=== PATIENT | female | born 1955 | race Caucasian/White ===

== ENCOUNTER 2022-10-28 21:57 | Inpatient (IN) | payer OTHER ==
[~2022-10-28] VITALS: Ht 172.7 cm; Wt 93.0 kg
[2022-10-28 22:08] VITALS: BP_SYST 135
--- NOTE | 2022-10-28 22:12 | NUR ---
Patient triaged and placed in BED 2. VSS and patient appears in no acute distress at this time. Accompanied by SELF and MD notified of need for MSE.
[2022-10-28] MEDS ORDERED: ALBUTEROL SULFATE 0.083% 2.5 MG/3 ML VIAL.NEB INH ONE (22:15)
[2022-10-28] MEDS ORDERED: methylPREDNISolone SOD SUCC/PF 62.5 MG/ML VIAL IVP ONE (22:15)
[2022-10-28] MEDS ORDERED: IPRATROPIUM BROM 0.5 MG/2.5 ML VIAL.NEB (ATROVENT) INH ONE (22:15)
[2022-10-28] MEDS ORDERED: cefTRIAXone 1 GM in D5W 50 ML IV ONE (22:15)
[2022-10-28 22:39] LABS: BASOPHILS % (AUTO) 0.4 % (0.0-2.0); EOSINOPHILS % (AUTO) 0.1 % (0.0-4.0); HEMATOCRIT 28.2 % (36-48); HEMOGLOBIN 8.2 g/dL (12.0-16.0); LYMPHOCYTES # (AUTO) 1.2 K/uL (1.0-5.5); LYMPHOCYTES % (AUTO) 11.5 % (20.5-51.5); MEAN CORPUSCULAR HEMOGLOBIN 20 pg (27-31); MEAN CORPUSCULAR HGB CONC 29 % (32-36); MEAN CORPUSCULAR VOLUME 71 fL (79.0-98.0); MONOCYTES # (AUTO) 0.9 K/uL (0.0-1.0); MONOCYTES % (AUTO) 8.3 % (1.7-9.3); NEUTROPHILS # (AUTO) 8.3 K/uL (1.8-7.7); NEUTROPHILS % (AUTO) 79.7 % (40.0-70.0); PLATELET COUNT (AUTO) 278 K/uL (130-430); RED BLOOD CELL COUNT(AUTO) 4.01 MIL/uL (4.2-6.2); RED CELL DISTRIBUTION WIDTH 21.9 % (9.0-15.0); WHITE BLOOD COUNT (AUTO) 10.4 K/uL (4.8-10.8)
[2022-10-28] MEDS ORDERED: cefTRIAXone 1 GM VIAL ONE (22:39)
[2022-10-28] MEDS ORDERED: ACETAMINOPHEN 325 MG TABLET PO ONE (22:45)
--- NOTE | 2022-10-28 22:47 | NUR ---
COVID AND FLU SAMPLE COLLECTED AND SENT TO LAB
[2022-10-28 23:30] LABS: CALCIUM 9.3 mg/dL (8.4-11.0); CHLORIDE 96 mmol/L (98-107); GLUCOSE 161 mg/dL (70-99); UREA NITROGEN, BLOOD 23 mg/dL (8-21)
[2022-10-28 23:31] LABS: ALANINE AMINOTRANSFERASE 13 U/L (12-78); ASPARTATE AMINOTRANSFERASE 13 U/L (10-37); CREATININE 1.54 mg/dL (0.55-1.30); GFR AFRICAN AMERICAN 43 mL/min (>90); TOTAL BILIRUBIN 1.1 mg/dL (0.0-1.0)
[2022-10-28 23:40] LABS: ANION GAP 5 (5-15)
--- NOTE | 2022-10-28 23:40 | NUR ---
ems gave breathing tx in route. pt placed on the monitor. pt c/o headache. md notified
--- NOTE | 2022-10-28 23:40 | NUR ---
patient came in for sob at home. es
[2022-10-29] MEDS ORDERED: POTASSIUM CHLORIDE 20 MEQ/PKT PACKET PO ONE
[2022-10-29] MEDS ORDERED: AZITHROMYCIN 500 MG in NS 250 ML IV ONE (00:15)
[2022-10-29] MEDS ORDERED: AZITHROMYCIN 500 MG/VIAL (ZITHROMAX) IV ONE ×2 (00:19→23:09)
[2022-10-29] MEDS ORDERED: DOCUSATE SODIUM 100 MG CAPSULE PO PRN (02:15)
[2022-10-29] MEDS ORDERED: ONDANSETRON HCL 4 MG/2 ML VIAL IVP PRN (02:15)
[2022-10-29] MEDS ORDERED: POTASSIUM CHLORIDE 20 MEQ TAB.PRT.SR PO PRN (02:15)
[2022-10-29] MEDS ORDERED: MAGNESIUM SULFATE 50 ML IV PRN (02:15)
[2022-10-29] MEDS ORDERED: MORPHINE 2 MG/ML INJ. SYRINGE IVP PRN ×2 (02:15)
[2022-10-29] MEDS ORDERED: MUPIROCIN 2% TOPICAL OINTMENT 22 GM NS PRN (02:15)
[2022-10-29] MEDS ORDERED: ACETAMINOPHEN 325 MG TABLET PO PRN (02:15)
[2022-10-29] MEDS ORDERED: DEXTROSE 50% JECT 50 ML DISP.SYRIN IVP PRN (02:15)
[2022-10-29] MEDS ORDERED: MAGNESIUM SULFATE 50 ML IV ONE (02:30)
[2022-10-29] MEDS ORDERED: ONDANSETRON 4 MG ODT TAB PO ONE (02:30)
--- NOTE | 2022-10-29 02:55 | NUR ---
[id number]
[2022-10-29 05:27] VITALS: BP_SYST 135
--- NOTE | 2022-10-29 05:45 | NUR ---
pt resting in bed. per pt gave list of meds to nuclear licensing engineer. unable to remmeber meds
--- NOTE | 2022-10-29 06:03 | NUR ---
Admit bed requested Patient will be admitted to care of . Admitted to TELE unit. Diagnosis COPD Inpatient (Yes or No) YES Observation (Yes or No) NO Orientation concerns or request close to nursing station (Yes or No) NO Covid Status NEGATIVE On vent or bipap NO Isolation requirements NO Needs a sitter NO From Home (Yes or if No enter name of facility) YES Requires Dialysis (Yes or No) NO Med Rec Completed (Yes of No) UNABLE TO OBTAIN BY PRIMARY NURSE DUE TO PT CANNOT REMEMBER ALL HER HOME MEDICATION.PT STATES SHE GAVE HER LIST TO THE INSURANCE ANALYST.
[2022-10-29] MEDS: METHYLPREDNISOLONE SOD SUCC 40 MG/ML VIAL IVP SCH ×3 (06:31→21:23)
[2022-10-29] MEDS: ALBUTEROL SULFATE 0.083% 2.5 MG/3 ML VIAL.NEB INH SCH ×4 (06:48→22:45)
--- NOTE | 2022-10-29 07:37 | NUR ---
Received report from outgoing nurse SANTY Gibbs. Pt awake and alert, no s/s of discomfort noted. 20g left wrist patent, no s/s of infiltration noted. Vitals taken.
--- NOTE | 2022-10-29 07:59 | NUR ---
Patient states brought home med list and gave to Ambulance EMT's. Med list did not make it into the building. Patient is unable to provide verbal list, states does not know them by heart. Patient will attempt to have someone from home send in a list or photos.
--- NOTE | 2022-10-29 08:00 | NUR ---
Patient given cardiac diet breakfast.
[2022-10-29 08:01] LABS: HEMATOCRIT 29.7 % (36-48); HEMOGLOBIN 8.5 g/dL (12.0-16.0); LYMPHOCYTES # (AUTO) 0.5 K/uL (1.0-5.5); LYMPHOCYTES % (AUTO) 5.4 % (20.5-51.5); MEAN CORPUSCULAR HEMOGLOBIN 20 pg (27-31); MEAN CORPUSCULAR HGB CONC 29 % (32-36); MEAN CORPUSCULAR VOLUME 71 fL (79.0-98.0); MONOCYTES # (AUTO) 0.1 K/uL (0.0-1.0); MONOCYTES % (AUTO) 0.8 % (1.7-9.3); NEUTROPHILS # (AUTO) 8.6 K/uL (1.8-7.7); NEUTROPHILS % (AUTO) 93.8 % (40.0-70.0); PLATELET COUNT (AUTO) 318 K/uL (130-430); RED BLOOD CELL COUNT(AUTO) 4.22 MIL/uL (4.2-6.2); WHITE BLOOD COUNT (AUTO) 9.2 K/uL (4.8-10.8)
[2022-10-29 08:26] LABS: RED CELL DISTRIBUTION WIDTH 22.3 % (9.0-15.0)
[2022-10-29 08:35] LABS: CALCIUM 9.4 mg/dL (8.4-11.0); CREATININE 1.36 mg/dL (0.55-1.30)
[2022-10-29 08:44] LABS: TOTAL IRON BIND. CAPACITY 500 ug/dL (250-450)
[2022-10-29 08:47] LABS: ALBUMIN 3.2 g/dL (3.4-4.8); THYROID STIMULATING HORMONE 0.5 uIu/mL (0.34-4.82); TOTAL BILIRUBIN 0.9 mg/dL (0.0-1.0)
--- NOTE | 2022-10-29 08:51 | NUR ---
DR. AMBRIZ AT THE BEDSIDE
[2022-10-29] MEDS ORDERED: BUDE6HFA INH (09:19)
[2022-10-29] MEDS ORDERED: ALBU2.5V7 INH (09:19)
[2022-10-29] MEDS ORDERED: CHOL125C7 (09:19)
[2022-10-29] MEDS ORDERED: MELO-89 PO (09:19)
[2022-10-29] MEDS ORDERED: APIX5TAB4 PO (09:19)
[2022-10-29] MEDS ORDERED: PRO20 PO (09:19)
[2022-10-29] MEDS ORDERED: ACET160S2 PO (09:19)
[2022-10-29] MEDS ORDERED: SPIRIVA INH (09:19)
[2022-10-29] MEDS ORDERED: ROSU40TA PO (09:19)
[2022-10-29] MEDS ORDERED: TORS20TA23 PO (09:19)
[2022-10-29] MEDS ORDERED: AMLO5TAB4 PO (09:19)
[2022-10-29] MEDS ORDERED: ASPI-1155 PO (09:19)
[2022-10-29] MEDS ORDERED: CARV12.548 PO (09:19)
[2022-10-29] MEDS ORDERED: MAGN400T10 PO (09:19)
--- NOTE | 2022-10-29 12:00 | NUR ---
Vibration Technician re: homelessness Met with patient at bedside to discuss her housing issues regarding homelessness. Per patient, she is not homeless. She recently relocated from [place] after she and her sone experienced health issues. The patient is a 67-year-old female who is alert and oriented. I completed an initial assessment with the patient at bedside. During my assessment, the patient states she resides in a single story home with her daughter and her family. The patient was using a walker, wheelchair, and home O2 set to 3L. The patient does have a [employer] of [employer], in which her daughter, Griffin Portillo ([phone]) holds the POA. Per patient, her PCP is Dr. Bhakta in [place]. Per patient, the discharge plan is to return back home with her family. The patient states there are no anticipated discharge needs in place. The patient is in agreement to the discharge plan. At time of discharge, the patient states her daughter will likely pick her up.
--- NOTE | 2022-10-29 16:08 | NUR ---
Patient will be admitted to care of DR BARRERA. Admitted to TELE unit. Will go to room 119A. Belongings list completed. Complete and up to date summary report printed. SBAR report to be given at bedside with opportunity for questions.
--- NOTE | 2022-10-29 16:10 | NUR ---
Pt admitted tele under care of DR Underwood AOX4 VSS Pt verbally responsive and able to make needs known Will continue to monitor
[2022-10-29 18:13] VITALS: BP_SYST 136
--- NOTE | 2022-10-29 18:28 | NUR ---
Patient SOB after ambulating to the bathoom RT called for breathing treatment Bedside commode provided to patient AOX4 at this time VSS Will continue to monitor
[2022-10-29 20:00] VITALS: BP_SYST 136
[2022-10-29] MEDS: APIXABAN 2.5 MG TABLET PO SCH (21:21)
[2022-10-29] MEDS: ATORVASTATIN 20 MG TABLET PO SCH (21:21)
[2022-10-29] MEDS: INSULIN LISPRO SLIDING SCALE 100 UNITS/ML, 3 ML VIAL (humaLOG) SUBCUT PRN (21:23)
[2022-10-29] MEDS: FERROUS SULFATE 325 MG TABLET.DR PO SCH (21:24)
[2022-10-29] MEDS: CARVEDILOL 12.5 MG TABLET (COREG) PO SCH (21:25)
--- NOTE | 2022-10-29 23:04 | NUR ---
CONSULTATION CALLED FOR DR. KRISHNAN FOR CONSULT OF COPD ORDER BY DR. BARRERA SPOKE WITH ANGLE
[2022-10-29] MEDS: ZOLPIDEM TARTRATE 5 MG TABLET PO PRN (23:08)
[2022-10-29] MEDS ORDERED: cefTRIAXone 1 GM IVPB PREMIX 50 ML IV ONE (23:09)
[2022-10-29] MEDS: cefTRIAXone 1 GM IVPB PREMIX 50 ML IV SCH (23:17)
--- NOTE | 2022-10-29 23:20 | NUR ---
CONSULTATION CHAMBERLAIN FOR DR. AMBRIZ FOR CONSULT CHF ORDER BY DR. BARRERA SPOKE WITH DOMINIC
[2022-10-29] MEDS: AZITHROMYCIN 500 MG in NS 250 ML IV SCH (23:55)
[2022-10-30] VITALS: BP_SYST 122
--- NOTE | 2022-10-30 03:00 | NUR ---
ROUNDS PATIENT IN BED, RESTING. NO SIGNS OF DISCOMFORT. ALL NEEDS MET. WILL MONITOR.
[2022-10-30] MEDS: METHYLPREDNISOLONE SOD SUCC 40 MG/ML VIAL IVP SCH ×3 (06:11→22:06)
--- NOTE | 2022-10-30 06:44 | NUR ---
CLOSING NOTE PATIENT IN BED, NO S/S OF ACUTE DISTRESS. BREATHING EVEN AND UNLABORED. HOB RAISED, NASAL CANULA ATTACHED PROPERLY, ON 4L OF OXYGEN. IV SITE PATENT,NO SIGNS OF INFILTRATION OR INFECTION NOTED. SKIN WARM AND DRY TO TOUCH. NO S/S OF HYPOGLYCEMIA NOTED. ALL NEEDS MET THROUGHOUT SHIFT. FALL, SAFETY PRECAUTIONS MAINTAINED THROUGHOUT SHIFT. WILL CONTINUE TO MONITOR UNTIL PATIENT CARE IS ENDORSED TO ONCOMING DAYSHIFT NURSE.
--- NOTE | 2022-10-30 07:48 | NUR ---
RN OPENING NOTE REPORT WAS ENDORSED BY NIGHT NURSE. PATIENT APPEARS TO BE RESTING WITH BOTH EYES CLOSED NO SIGNS OF ANY DISTRESS. NO OTHER NEEDS AT THIS TIME.
[2022-10-30 08:00] VITALS: BP_SYST 119
[2022-10-30] MEDS: FLUoxetine HCL 20 MG CAPSULE (PROzac) PO SCH (08:38)
[2022-10-30] MEDS: ASPIRIN 81 MG TAB.CHEW PO SCH (08:38)
[2022-10-30] MEDS: FERROUS SULFATE 325 MG TABLET.DR PO SCH ×2 (08:38→22:05)
[2022-10-30] MEDS: CARVEDILOL 12.5 MG TABLET (COREG) PO SCH ×2 (08:39→22:06)
[2022-10-30] MEDS: amLODIPine BESYLATE 5 MG TABLET PO SCH (08:39)
[2022-10-30] MEDS: APIXABAN 2.5 MG TABLET PO SCH ×2 (08:40→22:09)
--- NOTE | 2022-10-30 08:44 | NUR ---
medication/ breathing tx patients scheduled medication given per order. Patient is having some SOB RT is giving patient breathing treatment. Dr. Zavala is at bedside. patient educated match up person light for assistance. call light is with her. no other needs at this time.
[2022-10-30 08:56] LABS: BASOPHILS % (AUTO) 0.2 % (0.0-2.0); CALCIUM 9.4 mg/dL (8.4-11.0); CREATININE 1.27 mg/dL (0.55-1.30); HEMATOCRIT 27.4 % (36-48); HEMOGLOBIN 7.6 g/dL (12.0-16.0); LYMPHOCYTES # (AUTO) 0.7 K/uL (1.0-5.5); MEAN CORPUSCULAR HEMOGLOBIN 20 pg (27-31); MEAN CORPUSCULAR HGB CONC 28 % (32-36); MEAN CORPUSCULAR VOLUME 72 fL (79.0-98.0); MONOCYTES # (AUTO) 0.5 K/uL (0.0-1.0); MONOCYTES % (AUTO) 3.4 % (1.7-9.3); NEUTROPHILS # (AUTO) 14.9 K/uL (1.8-7.7); NEUTROPHILS % (AUTO) 92.4 % (40.0-70.0); PLATELET COUNT (AUTO) 331 K/uL (130-430); RED CELL DISTRIBUTION WIDTH 22.1 % (9.0-15.0)
[2022-10-30] MEDS ORDERED: ALBUTEROL SULFATE 0.083% 2.5 MG/3 ML VIAL.NEB INH PRN (09:00)
[2022-10-30 09:22] LABS: WHITE BLOOD COUNT (AUTO) 16.1 K/uL (4.8-10.8)
[2022-10-30 11:29] VITALS: BP_SYST 128
[2022-10-30] MEDS: INSULIN LISPRO SLIDING SCALE 100 UNITS/ML, 3 ML VIAL (humaLOG) SUBCUT PRN ×3 (11:49→22:25)
--- NOTE | 2022-10-30 11:51 | NUR ---
Accu check/ insulin coverage given per order. patient is awake and alert family is at bedside. educated diamond wheel molder light for assistance. call light is with.
[2022-10-30] MEDS: ALBUTEROL SULFATE 0.083% 2.5 MG/3 ML VIAL.NEB INH SCH ×2 (12:56→20:17)
--- NOTE | 2022-10-30 14:59 | NUR ---
medication patients scheduled medication given per order. patient tolerated well. patient has no complaints at this time. educated reconciling clerk light for assistance. call light is with her.
[2022-10-30 15:11] VITALS: BP_SYST 105
[2022-10-30] MEDS ORDERED: PANTOPRAZOLE SODIUM 40 MG/VIAL (PROTONIX) IVP ONE (17:15)
--- NOTE | 2022-10-30 18:20 | NUR ---
rn closing note report to be endorsed to oncoming night nurse. spoke with md patient complaints of chest pain in left lower rib cage area states it feel like gas buble md was informed and given orders for medication that was given to patient. patient assisted to bedside commode and back to bed. patient educated conservation scientist light for assistance. call light is with her.
[2022-10-30 20:00] VITALS: BP_SYST 140
--- NOTE | 2022-10-30 20:00 | NUR ---
OPENING Patient resting in bed, on 3L NC. Some shortness of breath of exertion. No distress noted. Safety precautions in place.
[2022-10-30] MEDS: ATORVASTATIN 20 MG TABLET PO SCH (22:05)
[2022-10-30] MEDS: ZOLPIDEM TARTRATE 5 MG TABLET PO PRN (22:13)
[2022-10-30] MEDS ORDERED: cefTRIAXone 1 GM IVPB PREMIX 50 ML IV ONE (22:55)
[2022-10-30] MEDS ORDERED: AZITHROMYCIN 500 MG/VIAL (ZITHROMAX) IV ONE (22:56)
[2022-10-31] MEDS: cefTRIAXone 1 GM IVPB PREMIX 50 ML IV SCH (00:18)
[2022-10-31 00:31] VITALS: BP_SYST 144
--- NOTE | 2022-10-31 01:12 | NUR ---
HIGH ALERT NOTE: Called Dr. Zavala back at [phone] identified within the medical roster to verify physician authenticity. Informed Dr. Zavala that patient's HR is elevated, mostly between 115-125 but up to high 130s-140s. Received order for Lopressor 2.5mg IVP one time with readback and confirmation.
[2022-10-31] MEDS ORDERED: METOPROLOL TARTRATE 5 MG/5 ML VIAL IVP ONE (01:15)
[2022-10-31] MEDS: AZITHROMYCIN 500 MG in NS 250 ML IV SCH (01:22)
[2022-10-31] MEDS: ALBUTEROL SULFATE 0.083% 2.5 MG/3 ML VIAL.NEB INH SCH ×4 (01:44→20:55)
[2022-10-31] MEDS ORDERED: MAG-AL HYDROX/SIMETH 30 ML UDC PO ONE (04:00)
--- NOTE | 2022-10-31 04:29 | NUR ---
0355 - Patient reported 10/10 sharp chest pain in center of chest below sternum, with some pain in stomach and occasional tingling in both arms. BP 144/90, 89-90% on 3L NC. Patient's nasal cannula had fallen off while she was sleeping and was replaced upon entrance to the room. 0359 - 2mg morphine administered. Resource nurse Jacquelyn informed Dr. Underwood and received order for Mylanta one time. 0413 - Mylanta administered. 0418 - Patient states pain is "all gone", 0/10. 92% on 3L NC. No sign of distress. Patient instructed to call if pain returns. Patient verbalized understanding.
[2022-10-31] MEDS: METHYLPREDNISOLONE SOD SUCC 40 MG/ML VIAL IVP SCH ×3 (06:42→23:07)
[2022-10-31] MEDS: INSULIN LISPRO SLIDING SCALE 100 UNITS/ML, 3 ML VIAL (humaLOG) SUBCUT PRN ×4 (06:48→23:21)
[2022-10-31 07:15] LABS: CALCIUM 9.8 mg/dL (8.4-11.0); CREATININE 1.35 mg/dL (0.55-1.30)
[2022-10-31 07:34] LABS: BASOPHILS % (AUTO) 0.1 % (0.0-2.0); HEMATOCRIT 27.7 % (36-48); HEMOGLOBIN 7.7 g/dL (12.0-16.0); LYMPHOCYTES # (AUTO) 0.5 K/uL (1.0-5.5); LYMPHOCYTES % (AUTO) 2.5 % (20.5-51.5); MEAN CORPUSCULAR HEMOGLOBIN 20 pg (27-31); MEAN CORPUSCULAR HGB CONC 28 % (32-36); MEAN CORPUSCULAR VOLUME 72 fL (79.0-98.0); MONOCYTES # (AUTO) 0.9 K/uL (0.0-1.0); MONOCYTES % (AUTO) 5.1 % (1.7-9.3); NEUTROPHILS % (AUTO) 92.3 % (40.0-70.0); PLATELET COUNT (AUTO) 287 K/uL (130-430); RED BLOOD CELL COUNT(AUTO) 3.83 MIL/uL (4.2-6.2)
--- NOTE | 2022-10-31 07:35 | NUR ---
CLOSING Patient resting in bed receiving breathing treatment. Denies chest pain this morning. Got up to bedside commode with standby assist. 2 units insulin given per sliding scale. Patient on 3L NC through night. Safety precautions in place. Endorsed to oncoming nurse.
[2022-10-31 08:31] VITALS: BP_SYST 140
[2022-10-31 08:42] LABS: WHITE BLOOD COUNT (AUTO) 18.4 K/uL (4.8-10.8)
[2022-10-31] MEDS: amLODIPine BESYLATE 5 MG TABLET PO SCH (09:04)
[2022-10-31] MEDS: APIXABAN 2.5 MG TABLET PO SCH ×2 (09:04→23:10)
[2022-10-31] MEDS: FLUoxetine HCL 20 MG CAPSULE (PROzac) PO SCH (09:04)
[2022-10-31] MEDS: PANTOPRAZOLE SODIUM 40 MG/VIAL (PROTONIX) IVP SCH (09:05)
[2022-10-31] MEDS: FERROUS SULFATE 325 MG TABLET.DR PO SCH ×2 (09:05→23:09)
[2022-10-31] MEDS: ASPIRIN 81 MG TAB.CHEW PO SCH (09:05)
[2022-10-31] MEDS: CARVEDILOL 12.5 MG TABLET (COREG) PO SCH ×2 (09:06→23:09)
--- NOTE | 2022-10-31 12:00 | NUR ---
Dietitian Recommendations * Continue Cardiac diet * Snacks TID between meals * Encourage good PO intakes LP, MS, RD Please refer to Nutrition Assessment for details. Addendum: 10/31/22 at [address] Amended: Links added.
[2022-10-31 12:38] VITALS: BP_SYST 142
[2022-10-31 16:26] VITALS: BP_SYST 120
[2022-10-31 20:00] VITALS: BP_SYST 126
[2022-10-31] MEDS: ATORVASTATIN 20 MG TABLET PO SCH (23:07)
[2022-10-31] MEDS: ZOLPIDEM TARTRATE 5 MG TABLET PO PRN (23:10)
[2022-11-01 00:15] VITALS: BP_SYST 130
[2022-11-01] MEDS ORDERED: AZITHROMYCIN 500 MG/VIAL (ZITHROMAX) IV ONE (00:56)
[2022-11-01] MEDS ORDERED: cefTRIAXone 1 GM IVPB PREMIX 50 ML IV ONE (00:56)
[2022-11-01] MEDS: ALBUTEROL SULFATE 0.083% 2.5 MG/3 ML VIAL.NEB INH SCH ×3 (01:46→13:47)
[2022-11-01] MEDS: cefTRIAXone 1 GM IVPB PREMIX 50 ML IV SCH (03:04)
[2022-11-01] MEDS: AZITHROMYCIN 500 MG in NS 250 ML IV SCH (04:44)
[2022-11-01] MEDS: INSULIN LISPRO SLIDING SCALE 100 UNITS/ML, 3 ML VIAL (humaLOG) SUBCUT PRN ×2 (06:37→12:40)
[2022-11-01] MEDS: METHYLPREDNISOLONE SOD SUCC 40 MG/ML VIAL IVP SCH (06:46)
[2022-11-01 07:35] LABS: BASOPHILS % (AUTO) 0.1 % (0.0-2.0); HEMOGLOBIN 7.5 g/dL (12.0-16.0); LYMPHOCYTES # (AUTO) 0.4 K/uL (1.0-5.5); LYMPHOCYTES % (AUTO) 2.3 % (20.5-51.5); MEAN CORPUSCULAR HEMOGLOBIN 20 pg (27-31); MEAN CORPUSCULAR HGB CONC 28 % (32-36); MEAN CORPUSCULAR VOLUME 73 fL (79.0-98.0); MONOCYTES # (AUTO) 0.8 K/uL (0.0-1.0); MONOCYTES % (AUTO) 4.4 % (1.7-9.3); NEUTROPHILS # (AUTO) 17.8 K/uL (1.8-7.7); NEUTROPHILS % (AUTO) 93.2 % (40.0-70.0); PLATELET COUNT (AUTO) 268 K/uL (130-430); RED BLOOD CELL COUNT(AUTO) 3.72 MIL/uL (4.2-6.2); RED CELL DISTRIBUTION WIDTH 22.2 % (9.0-15.0); WHITE BLOOD COUNT (AUTO) 19.1 K/uL (4.8-10.8)
[2022-11-01 08:13] LABS: ALBUMIN 2.9 g/dL (3.4-4.8); CALCIUM 9.3 mg/dL (8.4-11.0); CREATININE 1.3 mg/dL (0.55-1.30); TOTAL BILIRUBIN 0.5 mg/dL (0.0-1.0)
[2022-11-01] MEDS ORDERED: AZIT-93 PO (09:12)
[2022-11-01] MEDS ORDERED: PRED10TA PO (09:12)
[2022-11-01] MEDS: APIXABAN 2.5 MG TABLET PO SCH (09:24)
[2022-11-01] MEDS: ASPIRIN 81 MG TAB.CHEW PO SCH (09:24)
[2022-11-01] MEDS: FERROUS SULFATE 325 MG TABLET.DR PO SCH (09:25)
[2022-11-01] MEDS: FLUoxetine HCL 20 MG CAPSULE (PROzac) PO SCH (09:25)
[2022-11-01] MEDS: CARVEDILOL 12.5 MG TABLET (COREG) PO SCH (09:28)
[2022-11-01] MEDS: PANTOPRAZOLE SODIUM 40 MG/VIAL (PROTONIX) IVP SCH (09:29)
[2022-11-01] MEDS: amLODIPine BESYLATE 5 MG TABLET PO SCH (09:30)
--- NOTE | 2022-11-01 14:29 | NUR ---
Referral sent to [facility] [phone]-for glucometer and nebulizer. Referral sent to [facility] [phone] for Home Health services
[2022-11-01 15:24] VITALS: BP_SYST 112
[2022-11-01] MEDS ORDERED: FERR-31 PO (15:58)
[2022-11-01] MEDS ORDERED: METH-776 PO (15:58)
--- NOTE | 2022-11-01 16:44 | NUR ---
Patient was not accepted by [facility]. Referral for home health Faxed to [facility], they will let us know tomorrow if they can accept the patient.
--- NOTE | 2022-11-01 16:46 | NUR ---
Patient d/c home with [facility] via wheelchair and portable O2. Saturation 93%. Discharge instructions given to patient and daughter. Verbalized understanding. Vitals stable. No complaints of pain, dizziness or shortness of breath.
[2022-11-02] MEDS ORDERED: METHYLPREDNISOLONE SOD SUCC 40 MG/ML VIAL IVP SCH (09:00)
[2022-11-02] MEDS ORDERED: ALBU2.5V7 INH (10:16)
--- NOTE | 2022-11-02 11:34 | NUR ---
Patient accepted by [facility] [phone]-Daughter Griffin notified of [facility] accepting patient-Start of care will be 11/04
== END 2022-11-01 16:15 | disposition home health service (06) | DRG 193 ==
LOC: SED 21:57 → STU 10-29 02:10 → SMU 10-29 15:17 → STU 10-30 19:26
PROVIDERS: ADMIT Family Medicine; ATTEND Family Medicine
DX: J18.9 Pneumonia, unspecified organism (principal); J96.21 Acute and chronic respiratory failure with hypoxia; N17.0 Acute kidney failure with tubular necrosis; J44.1 Chronic obstructive pulmonary disease with (acute) exacerbation; E44.1 Mild protein-calorie malnutrition; I48.20 Chronic atrial fibrillation, unspecified; J44.0 Chronic obstructive pulmonary disease with (acute) lower respiratory infection; E87.6 Hypokalemia; D50.9 Iron deficiency anemia, unspecified; I11.0 Hypertensive heart disease with heart failure; Z20.822 Contact with and (suspected) exposure to COVID-19; I50.9 Heart failure, unspecified; E66.9 Obesity, unspecified; Z86.79 Personal history of other diseases of the circulatory system; Z87.891 Personal history of nicotine dependence; Z90.710 Acquired absence of both cervix and uterus; Z95.0 Presence of cardiac pacemaker; Z99.81 Dependence on supplemental oxygen; Z79.82 Long term (current) use of aspirin; Z79.01 Long term (current) use of anticoagulants; Z79.899 Other long term (current) drug therapy; Z68.31 Body mass index [BMI] 31.0-31.9, adult
CPT/HCPCS: 36415; 71045; 80048; 80053; 80061; 82728; 82962; 83540; 83550; 83605; 83735; 83880; 84443; 84484; 85025; 87040; 87081; 93005; 93306; 94640; 94760; 97116-GP; 97163-GP; 99291; C9113; G0378; J0456; J0696; J1030; J2270; J2930; J3475; J3490; J7613; Q0162